=== PATIENT | female | born 1960 | race Caucasian/White ===

== ENCOUNTER 2017-01-10 14:01 | Emergency (ER) | payer SELFPAY ==
--- NOTE | ~2017-01-10 | CR172 ---
[facility] A Service of [facility] / [facility] RADIOLOGY TEXT RESULTS PATIENT: SHANTEL GARCIA LOCATION: CFTX : 58 UNIT #: [id number] AGE: [address]: Breanna Simmons APRN SEX: F ORDER DR: [id number] [facility] [address] [place], [place] [address] [id number] MR#: [id number] Acc #: [id number] NAME: SHANTEL GARCIA. : 1960 SEX: F STUDY DATE/TIME: 01/10/2017 14:37 UNIT: [facility] ROOM: STUDY DESCRIPTION: CR Knee 3 Views Lt Attending Physician: Breanna Simmons A.P.R.N. Ordering Physician: [facility] MEDICAL IMAGING REPORT This report is preliminary unless electronic signature is present EXAM 2 views left knee HISTORY Pain after a concrete block fell on her leg 4 days ago. FINDINGS No acute fracture or subluxation of the left knee is identified. There is no suprapatellar effusion. No aggressive osseous abnormalities are seen. There is some enthesopathic change at the insertion of the quadriceps tendon. No aggressive osseous abnormalities are noted. IMPRESSION No acute fracture identified. Dictated by... Maria Dolores Fong M.D. THIS IS AN ELECTRONICALLY VERIFIED REPORT Maria Dolores Fong M.D. at 01/12/2017 5:15 PM AFF/pcl TD: 01/10/2017 21:41 JOB #: [id number] MEDICAL IMAGING REPORT Page 1 of 1 COPY
[~2017-01-10 14:01] MED LIST: ACETAMINOPHEN; ACETAMINOPHEN PO; ASPIRIN ENTERI325 M1 PO; BACTRIM DS TABL1 TA1 PO; CIPRO PO; ESTRACE; ESTRACE1 MG PO; KEFLEX500 MG PO; KLONOPIN PO; LODINE PO; LORTAB 7.5-5001 TAB PO; PRILOSEC40 MG PO; SOMA COMPOUND1 UDTAB PO; SOMA PO; TOPAMAX PO; VICODIN 5/500 T1 TAB; VICODIN PO
== END 2017-01-10 16:06 | disposition home or self-care (01) ==
LOC: CFTX 14:01 → CED 14:01 → CFTX 14:56
DX: S80.02XA Contusion of left knee, initial encounter (principal); F17.200 Nicotine dependence, unspecified, uncomplicated; Z88.0 Allergy status to penicillin; Z91.041 Radiographic dye allergy status; Z79.899 Other long term (current) drug therapy; X58.XXXA Exposure to other specified factors, initial encounter; Y92.009 Unspecified place in unspecified non-institutional (private) residence as the place of occurrence of the external cause
CPT/HCPCS: 29530; 73562; 99283

== ENCOUNTER 2017-02-09 11:32 | Emergency (ER) | payer OTHER ==
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
[2017-02-09] MEDS ORDERED: SYNTHROID (11:34)
[2017-02-09] MEDS ORDERED: PROZAC (11:34)
== END 2017-02-09 12:42 | disposition home or self-care (01) ==
LOC: SED 11:32
DX: S76.112A Strain of left quadriceps muscle, fascia and tendon, initial encounter (principal); F32.9 Major depressive disorder, single episode, unspecified; E03.9 Hypothyroidism, unspecified; Z88.0 Allergy status to penicillin; Z88.5 Allergy status to narcotic agent; Z91.041 Radiographic dye allergy status
CPT/HCPCS: 29530; 73562; 99283